=== PATIENT | female | born 1960 | race Caucasian/White ===

== ENCOUNTER 2018-02-09 19:18 | Emergency (ER) | payer OTHER ==
[~2018-02-09] VITALS: Ht 172.7 cm; Wt 75.0 kg
[~2018-02-09 19:18] MED LIST: CIPRO500 MG PO; CYANOCOBAL1000 MCG/2 IM; DIAZEPAM5 MG PO; ERGOCALCIF50000 UNIT PO; HUMIRA40 MG/0.1 SC; HYDROCORTISONE5 MG PO; KENALOG-4040 MG/ML IM; LIDODERM 5% P1 PATCH TD; PAROXETINE HCL25 MG PO; PAXIL CR25 MG PO; PROAIR HFA8.5 GM IH; RESTASIS 01 DROP/0.4 BOTH EYES; TRAMADOL HCL50 MG PO; TYLENOL EXTRA500 MG PO; ULTRAM50 MG PO; VAGIFEM10 MCG VG; VALIUM5 MG PO; VITAMIN D50000 UNI4 PO
[2018-02-09 23:05] VITALS: BP 138/69
== END 2018-02-09 23:05 | disposition home or self-care (01) ==
LOC: EME 19:18
PROC: 2W3QX1Z Immobilization of Right Lower Leg using Splint (ICD-10-PCS; principal; 2018-02-09)
DX: S80.12XA Contusion of left lower leg, initial encounter (principal); S80.11XA Contusion of right lower leg, initial encounter; S80.812A Abrasion, left lower leg, initial encounter; S80.811A Abrasion, right lower leg, initial encounter; S50.01XA Contusion of right elbow, initial encounter; M25.571 Pain in right ankle and joints of right foot; W11.XXXA Fall on and from ladder, initial encounter; Y92.016 Swimming-pool in single-family (private) house or garden as the place of occurrence of the external cause; Z91.040 Latex allergy status; Z88.5 Allergy status to narcotic agent; Z88.6 Allergy status to analgesic agent
CPT/HCPCS: 73080; 73590; 73610; 73630; 99281; 99284